=== PATIENT | male | born 1985 | race African-American/Black ===

== ENCOUNTER 2017-11-24 08:27 | Emergency (ER) | payer SELFPAY | END 2017-11-24 09:18 | disposition left against medical advice (07) | LOC: ERS 08:27 | DX: Z53.21 Procedure and treatment not carried out due to patient leaving prior to being seen by health care provider (principal) ==

== ENCOUNTER 2017-11-24 11:14 | Emergency (ER) | payer SELFPAY ==
[2017-11-24] MEDS ORDERED: Acetaminophen 325 MG TAB ONE (13:03)
[2017-11-24] MEDS ORDERED: Dexamethasone 4 MG TAB ONE (14:09)
--- NOTE | 2017-11-24 14:32 | RAD ---
RADIOGRAPH CHEST 2 VIEWS: HISTORY: 32-year-old male with cough. FINDINGS: There is no air space density, pulmonary edema, pleural effusion, pneumothorax, or cardiomegaly. IMPRESSION: No acute cardiopulmonary findings. [email or web address] POS: [facility]
== END 2017-11-24 14:55 | disposition home or self-care (01) ==
LOC: ERS 11:14
DX: B34.9 Viral infection, unspecified (principal)
CPT/HCPCS: 71046; 87804; J8540